=== PATIENT | female | born 1990 | race Caucasian/White ===

== ENCOUNTER 2024-07-02 13:54 | Outpatient (RCR) | payer SELFPAY ==
--- NOTE | 2024-07-02 15:27 | HP.OTEVAL ---
Patient's Visit Information Visit Information Visit Information: KATH IBARRA is a 33 year old F, referred to Occupational Therapy by CAROL Bejarano, with a diagnosis of B wrist pain. Date of Evaluation: 07/02/24 Occupational Therapist: Francisca Jensen Subjective Subjective: This 33 year old female arrives with dx of pain in B wrists. Pt reports having surgery in September on R side removal of deep cyst. pain started on L side due to over compensating. pt reports her pain is across the wrist and down the center volar side. Pt is R handed. 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 pt reports difficulty with opening jars ect. pt did receive X ray as well as nerve conduction test both negative. pt does wear B wrist braces occ at night when feeling bad wrist pain. Objective Objective/Observation: scar on R hand volar side along flexor carpi radialus. demonstrate proper ROM at wrist slight hyperextension of wrist ROM. ROM Forearm: wfl Wrist: L 70/60 R 70/60 Opposition: wfl ROM Comments: able to make full fist both hands L hand UD [address] R hand UD [address] 18 does not demonstrate intrinsic tightness or extrinsic tightness Strength Shoulder: L 15.6# R 14.5# Elbow: L bicep 17.6# R bicep 17.0 Cellophane Bag Machine Operator: L 50# R 50# Lateral Pinch: L 8# R 6# Tripod Pinch: L 7# R 5# Strength Comments: L tricep 13.8 R tricep 17.4 Edema Wrist: L 14.5 cm R 15.0 cm Quick DASH-Disab of Arm,Shoulder& Hand Quick DASH Score: 25.0000 Goals Goal:: Pt will improve B household appliance assembler strength by 5# or more (50#) in order to maximize heavy housework and day to day tasks pt will improve B shoulder strength by 5# or more in order to maximize I in day to day tasks as well as heavy housework pt will improve B bicep strength by 5# or more in order to maximize I in day to day tasks as well as heavy housework pt will improve B tricep strength by 5# or more in order to maximize I in day to day tasks as well as heavy housework Goal:: pt will report no pain during daily functional tasks as well as heavy instructor ground services in order to return to PLOF Goal:: pt will verbalize/ demonstrate 100% accuracy in proper joint protection and ergonomics to prevent wrist pain by discharge Goal:: pt will improve quick dash score by 5 points or more in order to improve functional use of BUEs Rehabilitation General Assessment: This 33 year old female arrives with dx of B wrist pain. pt reports pain with certain activities that cause prolonged use of B hands. pt reports feeling weak and when she does use B hands for extended time is down for 1-2 weeks. Pt demonstrates weakness proximally at bicep and triceps as well as shoulder muscles. Pt would benefit from OT services to work on wrist stabilization, ergonomics, as well as progressive strengthening to tolerance 1 visit every other week per pt request due to being self pay for 4-6 week duration. Rehabilitation Potential: Good Anticipated Interventions Anticipated Interventions: A/AAROM/PROM, Strengthening, Triggerpoint Release, Modalities, Joint Protection/Energy Conservation, Education re Diagnosis and Home Program Visit Plan Frequency: Every Other Week Duration: 4-6 Weeks General Plan: AROM/AAROM/PROM progressive strengthening wrist stability pain management trigger point release TEXT: Thank you for the opportunity to evaluate your patient. For Medicare and Medicare HMO plans, please review the plan of care and approve it. It will need to be FAXED BACK to us at [phone] for Medicare purposes. Please let me know if there are questions or concerns regarding this plan of care. Physician Signature: Date:
--- NOTE | 2024-10-20 11:05 | HP.OT.NRP ---
Patient Information Patient Information: KATH IBARRA was seen in my office for initial evaluation on 07/02/24. The following Plan of Care was established for this patient: POC Established Initial Frequency: Every Other Week Initial Duration: 4-6 Weeks Anticipated Interventions Anticipated Interventions: A/AAROM/PROM, Strengthening, Triggerpoint Release, Modalities, Joint Protection/Energy Conservation, Education re Diagnosis and Home Program Last Seen Last Seen: This patient was last seen in our office 07/07/24. Pertinent comments regarding their Occupational therapy will appear below: This 33 year old female arrives for OT eval due to B wrist pain. pt seen for completion of evaluation however note in this OT mailbox pt cancelled appointments with plan to go to other facility therefore discharge from OT at this time. At this point I will be discontinuing this patient from occupational therapy. I would be happy to see this patient again in the future if found appropriate by the physician. Thank you! Francisca Jensen
== END 2024-07-02 19:00 | disposition home or self-care (01) ==
LOC: OT 13:54
PROVIDERS: PCP Nurse Practitioner Family; Referring Provider Nurse Practitioner Family; Visit Provider Nurse Practitioner Family
DX: M25.531 Pain in right wrist (principal); M25.532 Pain in left wrist
CPT/HCPCS: 97165; 97530